=== PATIENT | female | born 1940 | race African-American/Black ===

== ENCOUNTER 2019-01-12 11:24 | Inpatient (IN) ==
[2019-01-12] MEDS ORDERED: DUONEB (A & A) INH PRN (12:00)
[2019-01-12] MEDS ORDERED: SODIUM CHLORIDE 0.9% INJ SCH (12:00)
[2019-01-12 12:29] LABS: ALLEN TEST NO; BE 2.3 mmoll (-3.0-3.0); BLOOD TYPE ARTERIAL; HCO3-(ACT) 26.7 mmoll (20.0-26.0); METHB 1.3 % (0.0-1.5); O2HB 95.4 % (95.0-99.0); PCO2(98.6) 46 mmHg (35-45); PO2(98.6) 87 mmHg (60-100); SAMPLE BLOOD; SAO2 98.6 % (95.0-100.0); THB 12.6 g/dL (11.5-17.4); pH(98.6) 7.39 (7.35-7.45)
[2019-01-12 12:30] LABS: MODALITY CANNULA
[2019-01-12 12:35] LABS: BASO# 0.02 X1000 (0.0-0.2); BASO% 0.2 % (0.0-0.8); EOS# 0.03 X1000 (0.0-0.7); EOS% 0.3 % (0.0-10.0); HEMATOCRIT 36.5 % (37.0-47.0); HEMOGLOBIN 12.4 g/dL (12.0-16.0); LYMPH# 1.14 X1000 (1.2-3.4); MCH 26.7 PG (27-31); MCV 78.7 FL (81-99); MONO# 0.67 X1000 (0.11-0.59); MONO% 7.1 % (1.7-9.3); MPV 9.3 FL (7.4-10.4); NEUT# 7.61 X1000 (1.4-6.5); NEUT% 80.4 % (42.2-75.2); PLT 301 X1000 (130-400); RBC 4.64 XMIL (4.2-5.4); RDW 13.4 % (11.5-14.5); WBC 9.47 X1000 (4.8-10.8)
[2019-01-12] MEDS: LEVAQUIN 500 MG/D5W 500 MG/100 ML IVPB IV SCH (12:47)
[2019-01-12] MEDS: ZOSYN 3.375 GM in NS 50 ML IV SCH ×2 (12:47→17:09)
[2019-01-12] MEDS: SOLU-MEDROL IV SCH ×2 (12:47→21:18)
[2019-01-12] MEDS: LOVENOX SUBQ SCH (12:48)
[2019-01-12] MEDS: PROTONIX IV SCH (12:48)
[2019-01-12 12:55] LABS: AGAP 12; ALB/GLOB RATIO 1.2; ALKALINE PHOSPHATASE 74 U/L (32-104); BUN 18 mg/dL (8-22); CALCIUM 9.2 mg/dL (8.8-10.2); CHLORIDE 100 mmol/L (98-107); CK PROFILE 87 U/L (24-173); COSMO 281; CREATININE 0.9 mg/dL (0.5-0.9); ESTIMATED GFR > 60; GLUCOSE 98 mg/dL (70-104); GOT 21 U/L (10-30); GPT 14 U/L (10-36); POTASSIUM 4.1 mmol/L (3.5-5.1); SODIUM 140 mmol/L (136-145); TCO2 28 mmol/L (25-35); TOTAL BILIRUBIN 0.58 mg/dL (0.20-1.00); TOTAL PROTEIN 7.4 g/dL (6.3-8.3)
[2019-01-12] MEDS ORDERED: COMBIVENT RESPIMAT INHALER INH PRN (20:42)
[2019-01-12] MEDS ORDERED: VENTOLIN HFA INH PRN (20:42)
--- NOTE | 2019-01-12 21:35 | HISTORY AND PHYSICAL ---
CHIEF COMPLAINT: Shortness of breath, productive cough, wheezing. HISTORY OF PRESENT ILLNESS: A 78-year-old female came to my office with 5 days history of above symptoms. Patient had a productive cough in my office taking oxygen, extremely wheezing. Chest x-ray showed right lower lobe bronchopneumonia, early infiltrate in the lower lobe. Basically admitted to the hospital with acute COPD exacerbation with right bronchopneumonia. PAST MEDICAL HISTORY: 1. Allergic rhinitis. 2. COPD. 3. Abnormal EKG, Q-waves in V1 to V2. 4. Hypertension. 5. Osteoarthritis. 6. Cervical spondylosis. PAST SURGICAL HISTORY: Cholecystectomy. MEDICATIONS: Advair 250/50 one puff q.12, Carafate as needed, losartan 100 daily, Mobic 7.5 p.o. b.i.d., Trelegy Ellipta 1 puff daily, Ultram 50 once daily. ALLERGIES: Not known. SOCIAL HISTORY: No smoking, no alcohol. , 2 children. FAMILY HISTORY: Father of prostate cancer at 66. Mom of MVA. Sister of throat cancer. HEALTH MAINTENANCE: Flu vaccine July 2018, Prevnar 2018, mammography July 2018, colonoscopy September 2009. REVIEW OF SYSTEMS: HEENT: No headache. No vision problem. No earache. Postnasal drainage. Neck: No neck pain. No goiter. No lymphadenopathies. Cardiopulmonary: No chest pain, shortness of breath, cough, and wheezing. Gastrointestinal: No nausea, vomiting, abdominal pain. Genitourinary: No history of hesitancy, frequency, dysuria. No claudication symptoms. No swelling of feet. No focal symptoms or weakness. PHYSICAL EXAMINATION: VITAL SIGNS: Temperature is 98.3, pulse is 84, blood pressure 125/63, 2 L nasal cannula 97%. HEENT EXAM: Atraumatic, normocephalic. Pupils equal, react to light. TMs are normal. Nose and throat congested. NECK: Supple. No lymphadenopathy. CHEST: Bilateral wheezing, rhonchi on the right side. CARDIOVASCULAR: Distal heart sounds. BREAST EXAM: Deferred. ABDOMEN: Belly is soft, nontender. Good bowel sounds. No signs of peritonitis. EXTREMITIES: No peripheral edema, cyanosis. NEUROLOGICAL: No obvious neurological deficits. LABORATORY DATA: CBC: White cell count 9.4, hematocrit 36.5, platelets 301,000. ABG: pH is 7.39, pCO2 46, PO2 87 on 28%. SMA 7: LFTs, cardiac enzymes, proBNP were normal. IMAGING: Chest x-ray in my office: COPD with early bronchopneumonia and infiltrate in the right lower lobe. ASSESSMENT: A 78-year-old female admitted to the hospital with acute chronic obstructive pulmonary disease exacerbation with right-sided bronchitis. PLAN: 1. Oxygen, bronchodilators and IV Levaquin and Zosyn and steroids. 2. Deep venous thrombosis and gastrointestinal GI prophylaxis as per order sheet. 3. Immunizations are up-to-date. 4. Reconcile home medications. 5. We will follow up. cc: Pasquale Barnhart MD
[2019-01-12] MEDS: MUCINEX PO SCH (21:48)
[2019-01-12] MEDS: ULTRAM PO SCH (21:49)
[2019-01-13] MEDS: ZOSYN 3.375 GM in NS 50 ML IV SCH ×4 (00:47→17:59)
[2019-01-13] MEDS: SOLU-MEDROL IV SCH ×3 (05:04→21:04)
[2019-01-13] MEDS: SPIRIVA INH SCH (08:50)
[2019-01-13] MEDS: ADVAIR 500/50 DISKUS INH SCH (08:51)
[2019-01-13] MEDS: MUCINEX PO SCH ×2 (09:16→21:08)
[2019-01-13] MEDS: COZAAR PO SCH (09:17)
[2019-01-13] MEDS: ULTRAM PO SCH ×2 (09:18→21:08)
[2019-01-13] MEDS: LEVAQUIN 500 MG/D5W 500 MG/100 ML IVPB IV SCH ×2 (12:32→13:38)
[2019-01-13] MEDS: PROTONIX IV SCH (12:33)
[2019-01-13] MEDS: LOVENOX SUBQ SCH (12:33)
--- NOTE | 2019-01-13 20:55 | PROGRESS NOTE ---
DATE: 01/13/2019 SUBJECTIVE: The patient is still short of breath, cough, and wheezing. Decreased productive cough and no chest pain. EXAM: Vital Signs: Temperature is 98, pulse 89. Blood pressure is stable. HEENT: Within normal limits. Chest: Bilateral wheezing. Heart: Distant heart sounds. The rest of the exam is benign. INVESTIGATIONS: None reported. ASSESSMENT AND PLAN: 1. Acute chronic obstructive pulmonary disease exacerbation with bronchopneumonia. Continue present treatment, bronchodilators, IV antibiotics, IV steroids. 2. Cough expectorants with guaifenesin. 3. Reconcile home medications, initiate vaccination protocol prior to the discharge. LEVEL OF DOCUMENTATION: 25 minutes. cc: Pasquale Barnhart MD
[2019-01-14] MEDS: ZOSYN 3.375 GM in NS 50 ML IV SCH ×4 (00:02→21:31)
[2019-01-14] MEDS: SOLU-MEDROL IV SCH ×2 (04:59→15:49)
[2019-01-14] MEDS: SPIRIVA INH SCH (08:24)
[2019-01-14] MEDS: ADVAIR 500/50 DISKUS INH SCH (08:24)
[2019-01-14] MEDS: ULTRAM PO SCH ×2 (09:58→21:30)
[2019-01-14] MEDS: COZAAR PO SCH (09:58)
[2019-01-14] MEDS: MUCINEX PO SCH ×2 (09:58→21:29)
[2019-01-14] MEDS: LEVAQUIN 500 MG/D5W 500 MG/100 ML IVPB IV SCH (15:48)
[2019-01-14] MEDS: PROTONIX IV SCH (15:49)
[2019-01-14] MEDS: LOVENOX SUBQ SCH (15:50)
--- NOTE | 2019-01-14 21:38 | PROGRESS NOTE ---
DATE: 01/14/2019 SUBJECTIVE: The patient is a little better. OBJECTIVE: Temperature is 98 degrees, pulse 98, vital signs are stable. HEENT exam within normal limits. Neck is supple. Decreased wheezing. Heart sounds are regular. Belly is soft, nontender. Good bowel sounds. No neurological deficits. ASSESSMENT AND PLAN: Acute chronic obstructive pulmonary disease exacerbation, stable. Continue intravenous antibiotics, decrease intravenous steroids. Continue present treatment, and if she continues to get better, we will discharge in the morning. Level of documentation 15 minutes. cc: Pasquale Barnhart MD
[2019-01-15] MEDS: SOLU-MEDROL IV SCH (00:17)
[2019-01-15] MEDS: ZOSYN 3.375 GM in NS 50 ML IV SCH ×2 (03:12→09:32)
[2019-01-15] MEDS ORDERED: SOLU-MEDROL IV SCH (06:00)
[2019-01-15 07:52] VITALS: BP 131/71
[2019-01-15] MEDS: ULTRAM PO SCH (09:31)
[2019-01-15] MEDS: COZAAR PO SCH (09:31)
[2019-01-15] MEDS: MUCINEX PO SCH (09:32)
[2019-01-15] MEDS: ADVAIR 500/50 DISKUS INH SCH (10:04)
[2019-01-15] MEDS: SPIRIVA INH SCH (10:04)
--- NOTE | 2019-01-16 04:04 | DISCHARGE SUMMARY ---
ADMISSION DATE: 01/13/2019 DISCHARGE DATE: 01/15/2019 DISCHARGING DIAGNOSIS: Acute chronic obstructive pulmonary disease exacerbation. SECONDARY DIAGNOSES: 1. Allergic rhinitis. 2. End-stage chronic obstructive pulmonary disease. 3. Hypertension. 4. Cervical spondylosis. BRIEF HISTORY: Please see the H and P that was done on 01/12/2019. In brief, she is a 78-year- old female, came to the hospital with acute shortness of breath, cough, wheezing, and moderate respiratory distress, productive cough with yellow phlegm associated with right bronchopneumonia. HOSPITAL COURSE: Patient was given oxygen, bronchodilators, IV steroids, IV antibiotics with a combination of Levaquin and Zosyn. Patient got better. Rest of the hospital course was uneventful. LABS: CBC: White cell count 9.4, hematocrit 36.5, platelet count 301,000. ABG, pH is 7.39, pCO2 is 46, pO2 is 87 on 28%. SMA 7, LFTs were normal. Cardiac enzymes, proBNP were normal. Patient is up-to-date on vaccinations. DISPOSITION: Discharged home in stable condition with the following instructions: 1. Tramadol 50 p.o. b.i.d., ProAir HFA 1 puff q.6 hours as needed for rescue inhaler, losartan 100 daily, Advair 500/50 one puff daily, Spiriva 1 puff daily, guaifenesin 10 mL t.i.d., Medrol Dosepak, Levaquin 500 daily, Norel AD p.o. b.i.d., and DuoNeb nebulizers q.6 hours as needed, Combivent rescue inhalers as needed q.8 hours. 2. Pneumococcal vaccine 13 was up to date. 3. Continue oxygen at nighttime as needed. 4. Follow up in my office in 1 week. cc: MD VICTORIA Roque
== END 2019-01-15 10:03 | disposition home or self-care (01) | DRG 190 ==
LOC: DIRADM → 3N 11:24
PROVIDERS: ADMIT Internal Medicine; ATTEND Internal Medicine
CPT/HCPCS: 80053; 82550; 82805; 83880; 84484; 85025; 94640; 94761; A9270; C9113; J1650; J1956; J2543; J2930; S0164